=== PATIENT | female | born 2000 ===

== ENCOUNTER 2023-10-14 16:39 | Emergency (ER) | payer SELFPAY ==
--- NOTE | 2023-10-14 17:43 | PC.NURSE ---
pt does not want to be seen in ED reports she wants to establish with OBGYN. Pt reports LMP was in 07/12. Pt denies any pain or vaginal bleeding. paper with [facility] given to pt
== END 2023-10-14 19:18 | disposition left against medical advice (07) ==
DX: Z53.21 Procedure and treatment not carried out due to patient leaving prior to being seen by health care provider (principal)
CPT/HCPCS: 99199